=== PATIENT | female | born 2000 | race Caucasian/White ===

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

== ENCOUNTER 2021-12-29 12:21 | Observation (INO) | payer MEDICAID ==
[~2021-12-29] VITALS: Ht 147.3 cm; Wt 48.5 kg
[2021-12-29 13:30] VITALS: BP 109/69
[2021-12-29] MEDS ORDERED: DEXT 5% / LACT RING 1,000 ML IV SCH (14:05)
[2021-12-29] MEDS ORDERED: ACETAMINOPHEN 325 MG TAB PO PRN (14:05)
[2021-12-29] MEDS ORDERED: ACET-2619 PO (15:22)
[2021-12-29] MEDS ORDERED: PREN-543 PO (15:22)
== END 2021-12-29 17:28 | disposition home or self-care (01) ==
LOC: MED 12:21 → MLD 12:52
PROVIDERS: ADMIT Obstetrics & Gynecology; ATTEND Obstetrics & Gynecology
DX: O98.512 Other viral diseases complicating pregnancy, second trimester (principal); U07.1 COVID-19; O26.892 Other specified pregnancy related conditions, second trimester; R10.9 Unspecified abdominal pain; Z3A.26 26 weeks gestation of pregnancy
CPT/HCPCS: 59025; 81000; 87426; 96360; 96361; G0378; G0379